=== PATIENT | male | born 1960 | race African-American/Black ===

== ENCOUNTER 2018-07-30 08:15 | Observation (INO) | payer BC ==
[2018-07-30] MEDS ORDERED: NITROGLYCERIN (SL) 0.4 MG TAB SL ×2 (09:00→11:30)
[2018-07-30 09:08] LABS: ADD MAN DIFF? NO
[2018-07-30 09:12] LABS: BASOPHILS % 0.4 % (0.0-2.0); EOSINOPHILS # 0.2 10^3/ul (0.0-0.5); EOSINOPHILS % 3.6 % (0.0-7.0); HEMATOCRIT 42.7 % (42.0-52.0); HEMOGLOBIN 14.6 g/dl (14.0-18.0); LYMPHOCYTES # 1.8 10^3/ul (0.8-2.9); MEAN CORPUSCULAR HEMOGLOBIN 29.1 pg (29.0-33.0); MEAN CORPUSCULAR HGB CONC 34.2 g/dl (32.0-37.0); MEAN CORPUSCULAR VOLUME 85.1 fl (82.0-101.0); MEAN PLATELET VOLUME 10.2 fl (7.4-10.4); MONOCYTE # 0.4 10^3/ul (0.3-0.9); MONOCYTES % 8.3 % (0.0-11.0); NEUTROPHIL # 2.1 10^3/ul (1.6-7.5); NEUTROPHILS % 47.3 % (39.0-77.0); PLATELET COUNT 239 10^3/UL (140-415); RED BLOOD COUNT 5.02 10^6/ul (4.70-6.10); RED CELL DISTRIBUTION WIDTH 12.8 % (11.5-14.5)
[2018-07-30 09:12] LABS: WHITE BLOOD COUNT 4.5 10^3/ul (4.8-10.8)
[2018-07-30] MEDS: NITROGLYCERIN 2% 1 GM OINT PKT TD (09:29)
[2018-07-30 09:30] LABS: ANION GAP 7 (5-13); BLOOD UREA NITROGEN 20 mg/dl (7-20); CALCIUM 10.1 mg/dl (8.4-10.2); CARBON DIOXIDE 30 mmol/L (21-31); CHLORIDE 101 mmol/L (97-110); CREATININE 1.01 mg/dl (0.61-1.24); Estimated GFR > 60 mL/min (>60); GLUCOSE 183 mg/dl (70-220); POTASSIUM 4.2 mmol/L (3.5-5.1); SODIUM 138 mmol/L (135-144)
[2018-07-30 09:41] LABS: TROPONIN-I < 0.012 ng/ml (0.000-0.120)
[2018-07-30] MEDS ORDERED: ONDANSETRON 4 MG INJ IV (10:00)
[2018-07-30] MEDS ORDERED: ACETAMINOPHEN 325 MG TAB PO ×2 (10:00→11:30)
[2018-07-30] MEDS ORDERED: HYDROCODONE/APAP (5/325) TAB PO (11:30)
[2018-07-30] MEDS ORDERED: NACL 0.9% 3 ML SYG IV (11:30)
[2018-07-30 14:08] LABS: HEMOGLOBIN A1C 8.9 % (0-5.9)
[2018-07-30] MEDS ORDERED: GLUCOSE GEL 15 GRAM TUBE PO ×2 (14:30)
[2018-07-30] MEDS ORDERED: DEXTROSE 50% 50 ML SYRINGE IV ×2 (14:30)
[2018-07-30] MEDS ORDERED: GLUCAGON 1 MG INJ IM (14:30)
[2018-07-30] MEDS ORDERED: GLUCOSE GEL 15 GRAM TUBE BUCCAL (14:30)
[2018-07-30 17:05] LABS: CREATINE KINASE 144 IU/L (23-200)
[2018-07-30 17:19] LABS: CK INDEX 0.5; CK-MB 0.66 ng/ml (0.0-2.4); TROPONIN-I < 0.012 ng/ml (0.000-0.120)
[2018-07-30] MEDS: INSULIN ASPART [NOVOLOG] 3 ML PEN SC ×3 (17:40→21:00)
[2018-07-30] MEDS: ATORVASTATIN 20 MG TAB PO (20:23)
[2018-07-30] MEDS: METOPROLOL 25 MG TAB PO (20:24)
[2018-07-30 20:33] LABS: FREE T4 (FREE THYROXINE) 1.03 ng/dl (0.64-1.79)
[2018-07-30 21:36] LABS: CREATINE KINASE 144 IU/L (23-200)
[2018-07-30 21:46] LABS: CK INDEX 0.4; CK-MB 0.61 ng/ml (0.0-2.4); TROPONIN-I < 0.012 ng/ml (0.000-0.120)
[2018-07-30] MEDS: INSULIN GLARGINE [LANTus] (100 UNITS/ML) SYG SC (21:54)
[2018-07-31 01:18] LABS: AMPHETAMINE/METHAMPHETAMINE NEGATIVE (NEGATIVE); BARBITURATES NEGATIVE (NEGATIVE); BENZODIAZEPINES NEGATIVE (NEGATIVE); CANNABINOIDS POSITIVE (NEGATIVE); COCAINE NEGATIVE (NEGATIVE); OPIATES NEGATIVE (NEGATIVE)
[2018-07-31 06:47] LABS: ADD MAN DIFF? NO
[2018-07-31 06:53] LABS: WHITE BLOOD COUNT 4.5 10^3/ul (4.8-10.8)
[2018-07-31 06:53] LABS: BASOPHILS % 0.7 % (0.0-2.0); EOSINOPHILS # 0.4 10^3/ul (0.0-0.5); EOSINOPHILS % 8.2 % (0.0-7.0); HEMATOCRIT 43.4 % (42.0-52.0); LYMPHOCYTES # 2.1 10^3/ul (0.8-2.9); LYMPHOCYTES % 45.7 % (15.0-51.0); MEAN CORPUSCULAR HEMOGLOBIN 29.2 pg (29.0-33.0); MEAN CORPUSCULAR HGB CONC 34.6 g/dl (32.0-37.0); MEAN CORPUSCULAR VOLUME 84.4 fl (82.0-101.0); MEAN PLATELET VOLUME 10.7 fl (7.4-10.4); MONOCYTE # 0.4 10^3/ul (0.3-0.9); MONOCYTES % 8.9 % (0.0-11.0); NEUTROPHIL # 1.6 10^3/ul (1.6-7.5); NEUTROPHILS % 36.5 % (39.0-77.0); PLATELET COUNT 252 10^3/UL (140-415); RED BLOOD COUNT 5.14 10^6/ul (4.70-6.10); RED CELL DISTRIBUTION WIDTH 12.6 % (11.5-14.5)
[2018-07-31 07:13] LABS: CREATINE KINASE 120 IU/L (23-200)
[2018-07-31 07:15] LABS: PHOSPHORUS 3.8 mg/dl (2.5-4.9)
[2018-07-31 07:15] LABS: CHOL/HDL RATIO 4.2 RATIO; CHOLESTEROL 127 mg/dl (100-200); HDL CHOLESTEROL 30 mg/dl (28-71); LDL CHOLESTEROL,CALCULATED 74 mg/dl; MAGNESIUM 1.9 mg/dl (1.7-2.5); TRIGLYCERIDES 116 mg/dl (0-149)
[2018-07-31 07:20] LABS: ALANINE AMINOTRANSFERASE 31 IU/L (13-69); ALBUMIN 4.3 g/dl (3.3-4.9); ALBUMIN/GLOBULIN RATIO 1.79; ALKALINE PHOSPHATASE 53 IU/L (42-121); ANION GAP 8 (5-13); ASPARTATE AMINO TRANSFERASE 28 IU/L (15-46); BILIRUBIN,INDIRECT 0.7 mg/dl (0-1.1); BILIRUBIN,TOTAL 0.7 mg/dl (0.2-1.3); BLOOD UREA NITROGEN 20 mg/dl (7-20); CALCIUM 9.6 mg/dl (8.4-10.2); CARBON DIOXIDE 28 mmol/L (21-31); CHLORIDE 101 mmol/L (97-110); CREATININE 0.99 mg/dl (0.61-1.24); Estimated GFR > 60 mL/min (>60); GLUCOSE 148 mg/dl (70-220); POTASSIUM 4.1 mmol/L (3.5-5.1); SODIUM 137 mmol/L (135-144); TOTAL PROTEIN 6.7 g/dl (6.1-8.1)
[2018-07-31 07:26] LABS: CK INDEX 0.5; CK-MB 0.63 ng/ml (0.0-2.4); TROPONIN-I < 0.012 ng/ml (0.000-0.120)
[2018-07-31 07:27] LABS: TROPONIN-I < 0.012 ng/ml (0.000-0.120)
[2018-07-31] MEDS: INSULIN ASPART [NOVOLOG] 3 ML PEN SC ×5 (07:37→12:10)
[2018-07-31] MEDS: REGADENOSON 0.4 MG/5 ML SYG (08:55)
[2018-07-31] MEDS: BENAZEPRIL 20 MG TAB PO (10:05)
[2018-07-31] MEDS: METOPROLOL 25 MG TAB PO (10:06)
[2018-07-31] MEDS: ASPIRIN 81 MG TAB PO (10:06)
[2018-07-31] MEDS: ENOXAPARIN 40 MG/0.4 ML SYG SC (10:15)
== END 2018-07-31 12:40 | disposition home or self-care (01) ==
LOC: E/R 08:15 → TEL 09:53
PROVIDERS: Internal Medicine
DX: R07.89 Other chest pain (principal); I10 Essential (primary) hypertension; E11.9 Type 2 diabetes mellitus without complications; Z79.84 Long term (current) use of oral hypoglycemic drugs; E78.5 Hyperlipidemia, unspecified; Z82.49 Family history of ischemic heart disease and other diseases of the circulatory system
CPT/HCPCS: 36415; 71045; 78452; 80048; 80053; 80061; 80307; 82550; 82553; 82962; 83036; 83735; 84100; 84439; 84443; 84484; 85025; 93005; 93017; 93306; 99285-25; G0378